=== PATIENT | female | born 1995 | race Caucasian/White ===

== ENCOUNTER 2021-08-16 14:17 | Emergency (ER) | payer BC, SELFPAY ==
[2021-08-16 14:18] VITALS: BP 144/94; PULSE 97; RESP 17; TEMP 36.8; O2SAT 100; BMI 38.1
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
== END 2021-08-16 16:50 | disposition home or self-care (01) ==
PROVIDERS: Emergency Provider Emergency Medicine; Visit Provider Emergency Medicine
DX: S50.01XA Contusion of right elbow, initial encounter (principal); S09.90XA Unspecified injury of head, initial encounter; V89.0XXA Person injured in unspecified motor-vehicle accident, nontraffic, initial encounter
CPT/HCPCS: 73080; 99282